=== PATIENT | male | born 1975 | race African-American/Black ===

== ENCOUNTER 2017-10-22 06:45 | Outpatient (CLI) | payer MEDICARE ==
[2017-10-21 09:24] VITALS: BMI 37.5
[~2017-10-22 06:45] MED LIST: FLU VACC QS2017-18 36 mo. & older 0.5 ML SYRINGE IM ONE; Prevnar 13-Val Conj/PF 0.5 ML SYRINGE IM ONE
[2017-10-22 07:41] VITALS: BP 115/84; TEMP 97.4
--- NOTE | 2017-10-22 09:21 | RAD ---
LUMBAR SPINE FOUR VIEWS: Technique: AP view was taken. Lateral views obtained in neutral, flexion and extension positions. History: Back pain. Comparison: 02-14-16 FINDINGS: The pedicle screws are again noted at L5-S1. Grade II spondylolisthesis of L5-S1 is again noted and d oes not appear significantly changed from the 02-14-16 exam. The alignment above L5 is maintained. Disc spaces above L5 are maintained. Prominent facet hypertroph y is noted at L3-4, L4-5, and L5-S1. The listhesis is measured at 2.7 cm in the neutral position, similar to the prior study. Flexion emma urements are recorded at 2.4 and extension recorded at 2.1. IMPRESSION: Grade II spondylolisthesis at L5-S1 with loss of disc space. Post-operative and degenerative changes noted as described. POS: [facility]
--- NOTE | 2017-10-22 09:26 | RAD ---
LUMBAR MYELOGRAM: History: Lumbar fusion. Lumbar radiculopathy. Comparison: None. Exposure: 1.1 minutes, 1165.1 mGy*cm^2. FINDINGS: Initial four view lumbar spine radiographic series is used for mold stamper and repairer imaging. There is a broken left sided S1 screw. There is perihardware lucency involving bilateral S1 and L5 screws. There is grade II anterolisthesis of L5 upon S1. Successful lumbar spine myelogram. A total of 10 cc of Isovue 200M contrast was administered intrathe himanshu. There were no immediate or post procedure complications. Technique: Consent obtained to perform a lumbar myelogram. Patient's back was evaluated. The L3-4 level was deem ed appropriate. Skin was prepped and draped in sterile fashion. 1% Lidocaine, buffered with sodium bi carbonate was used for local anesthesia. Under fluoroscopic guidance, a 22 gauge spinal needle was ad vanced through the CSF space. Via short tubing catheter, a total of 10 cc of Isovue 200M contrast was administered intrathecally. Patient tolerated the procedure well. No immediate or post procedure com plication. IMPRESSION: Successful lumbar puncture for lumbar myelogram. Please refer to post myelogram CT for further detail . POS: [facility]
--- NOTE | 2017-10-22 10:06 | CT ---
POST MYELOGRAM LUMBAR SPINE CT: History: Lumbar radiculopathy. Comparison: 06-30-14 Technique: Post myelogram lumbar spine CT is performed in the axial plane. Reformatted images are submitted for interpretation. FINDINGS: There are five lumbar type vertebral bodies. Redemonstration of a fractured left sided S1 transpedicu lar screw. There is perihardware lucency in the right S1 transpedicular screw as well as bilateral L5 transpedicular screws. There is persistent vacuum disc phenomenon. There is 1.2 cm of anterolisthesi s of L5 upon S1. No retroperitoneal mass, lymphadenopathy or hematoma. Visualized solid organs are grossly unremarkabl e. Conus medullaris terminates at the lower aspect of L2. Near the termination of the cord, there is a h ypodense mass that is extramedullary and intradural measuring 6 mm mediolateral x 1 cm anteroposterio r x 4.3 cm craniocaudal. A lipoma is favored. T11-12: No significant central canal stenosis or foraminal narrowing. T12-L1: No significant central canal stenosis or foraminal narrowing. L1-2: No significant central canal stenosis or foraminal narrowing. L2-3: No significant central canal stenosis or foraminal narrowing. L3-4: No significant central canal stenosis or neural foraminal narrowing. L4-5: No high grade central canal stenosis. Mild bilateral foraminal narrowing. L5-S1: Vacuum disc phenomenon. No high grade central canal stenosis. Moderate bilateral foraminal gabriela rowing. IMPRESSION: 1. Lumbar fusion with Grade II anterolisthesis of L5 upon S1. There is fracture of the left S1 transp edicular screw along with perihardware lucency involving bilateral L5 and the right S1 transpedicular screw. 2. No high grade central canal stenosis or high grade foraminal narrowing. 3. 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 POS: [facility]
== END 2017-10-22 06:46 | disposition home or self-care (01) ==
LOC: RAD 06:45
PROVIDERS: ATTEND Neurological Surgery
DX: M43.16 Spondylolisthesis, lumbar region (principal); M43.26 Fusion of spine, lumbar region; S32.10XA Unspecified fracture of sacrum, initial encounter for closed fracture; D17.9 Benign lipomatous neoplasm, unspecified; M43.17 Spondylolisthesis, lumbosacral region; M47.897 Other spondylosis, lumbosacral region; M51.87 Other intervertebral disc disorders, lumbosacral region; Z98.890 Other specified postprocedural states
CPT/HCPCS: 62304; 72120; 72132

== ENCOUNTER 2018-03-14 09:04 | Outpatient (CLI) | payer MEDICARE ==
--- NOTE | 2018-03-14 12:05 | MRI ---
MRI RIGHT SHOULDER WITHOUT CONTRAST: INDICATIONS: Right shoulder pain. Limited range of motion. FINDINGS: There is a full-thickness tear involving the supraspinatus, measuring 1.8 x 1.8 cm. There is moderat e tendinosis of the biceps tendon. There is abnormal linear T2 hyperintensity involving the superior glenoid labrum, extending to posterior-superior glenoid labrum, suspicious for a type II SLAP tear. The biceps tendon is located. There is mild tendinosis of the subscapularis. There is mild tendino sis of the infraspinatus. There is some intratendinous delamination seen extending into the anterior infraspinatus from the full-thickness supraspinatus tear, from the region of the conjoined tendon, b ack to the level of the musculotendinous junction of the infraspinatus. There is moderate AC joint o steoarthrosis with joint hypertrophy causing moderate encroachment on the subjacent supraspinatus mus culotendinous junction. No ling muscular atrophy is evident. The glenoid articular surface appears within normal limits. IMPRESSION: 1. Large full-thickness tear of the supraspinatus with partial thickness intratendinous delamination extending into the anterior infraspinatus back to the level of the musculotendinous junction. 2. Moderate acromioclavicular joint osteoarthrosis with mild encroachment. 3. Type II superior labrum anterior and posterior tear. POS: [facility]
== END 2018-03-14 09:05 | disposition home or self-care (01) ==
LOC: SCSMRI 09:04
PROVIDERS: ATTEND Orthopaedic Surgery
DX: M25.511 Pain in right shoulder (principal); M75.101 Unspecified rotator cuff tear or rupture of right shoulder, not specified as traumatic; S43.401A Unspecified sprain of right shoulder joint, initial encounter; M19.011 Primary osteoarthritis, right shoulder

== ENCOUNTER 2018-08-10 18:38 | Inpatient (IN) | payer MEDICARE ==
[2018-08-10 19:55] LABS: Anion Gap 16 mmol/L (10-20); BUN (Urea Nitrogen) 16 mg/dL (8.9-20.6); Calc. Creatinine Clearance 0 mL/min (70-130); Calcium 8.9 mg/dL (7.8-10.44); Carbon Dioxide 15 mmol/L (22-29); Chloride 105 mmol/L (98-107); Estimated GFR-MDRD 69; Glucose 382 mg/dL (70-105); Potassium 3.9 mmol/L (3.5-5.1); Sodium 132 mmol/L (136-145)
--- NOTE | 2018-08-10 20:25 | PDOC.FPRHP ---
- History of Present Illness Chief Complaint: DKA History of Present Illness: This is a 43 yo male with a pmh of DM2, HLD, and depression who presents to the ed from an outside facility with a cc of hyperglycemia. Pt states that he has had a URI for the past 3 weeks and reports he has been feeling poor. He presented to an outside ED and was found to be in DKA. He has received IVF bolus. He states that he has been off medications for over a year due to correction with lifestyle and diet however he reports not following this lifestyle as closely. He reports polydipsia and polyuria. ED Course: NS 2L Insulin 10 units/hr - Allergies/Adverse Reactions Allergies Allergy/AdvReac Type Severity Reaction Status Date / Time No Known Allergies Allergy Verified 10/21/17 09:12 - History PMHx: DM2, HLD PSHx: noncontributory FHx:DM, prostate cancer, HTN Social: 1/2 pack a day, socially drinks, marijuana use - Review of Systems General: reports: weight/appetite/sleep changes (25 lbs loss in 1 month), fatigue. denies: fever/chills Eyes: reports: vision changes (blurry vision, improved since lower sugars). denies: eye pain ENT: reports: nasal congestion, rhinorrhea Respiratory: denies: cough, congestion, shortness of breath Cardiovascular: denies: chest pain, palpitation, edema Gastrointestinal: reports: nausea. denies: vomiting, diarrhea, constipation Genitourinary: reports: polyuria Skin: reports: lesions (lesion on right side of head) Musculoskeletal: denies: pain, tenderness Neurological: denies: numbness, syncope Psychological: denies: anxiety, depression - Vital signs BP: 116/90 HR: 102 RR: 19 Tmax: 98.4 Pox: 99% on ra Wt: 106 kg - Physical Exam Constitutional: NAD, awake, alert and oriented, well developed HEENT: EOMI, grossly normal hearing, other (Pt has contracted, uclerated lesion on his right temporal region) Neck: trachea midline, no JVD Chest: no-tender to palpation Heart: RRR, normal S1/S2, no murmurs/rubs/gallops Lungs: CTAB, no respiratory distress, good air movement Abdomen: soft, non-tender, bowel sounds present, no masses/distention Musculoskeletal: normal structure, normal tone Neurological: CN II-XII intact Skin: good turgor Heme/Lymphatic: no unusual bruising or bleeding Psychiatric: normal mood and affect, good judgment and insight FMR H&P: Results - Labs Result Diagrams: 08/11/18 03:11 Lab results: Sodium 132 mmol/L (136-145) L 08/10/18 19:27 Potassium 3.9 mmol/L (3.5-5.1) 08/10/18 19:27 Chloride 105 mmol/L (98-107) 08/10/18 19:27 Carbon Dioxide 15 mmol/L (22-29) L 08/10/18 19:27 BUN 16 mg/dL (8.9-20.6) 08/10/18 19:27 Creatinine 1.36 mg/dL (0.7-1.3) H 08/10/18 19:27 Glucose 382 mg/dL (70-105) H 08/10/18 19:27 Calcium 8.9 mg/dL (7.8-10.44) 08/10/18 19:27 wbc 9.0 Hgb 17.8 Hct 56.8 Plt 251 MCV 82.3 - Radiology Interpretation Chest x-ray Status: report reviewed by me (no acute cardiopulmonary disease) FMR H&P: A/P - Problem List (1) DKA (diabetic ketoacidoses) Current Visit: Yes Status: Acute Code(s): E13.10 - OTH DIABETES MELLITUS WITH KETOACIDOSIS WITHOUT COMA (2) DM2 (diabetes mellitus, type 2) Current Visit: Yes Status: Acute (3) CRISTOBAL (acute kidney injury) Current Visit: Yes Status: Acute Code(s): N17.9 - ACUTE KIDNEY FAILURE, UNSPECIFIED (4) HLD (hyperlipidemia) Current Visit: Yes Status: Acute Code(s): E78.5 - HYPERLIPIDEMIA, UNSPECIFIED - Plan This is a 43 yo male with a pmh of DM2, HLD, and depression DKA -Admit to IMCU -Currently on insulin drip at 10 units/hr -Initiate DKA protocol and monitor anion gap -Current potassium is 5.1, continue to monitor electrolytes with BMP Pseudohyponatremia -Corrected Na is 137 HLD -Continue home meds Depression -Continue home meds Tobacco abuse -Nicotine patch, encourage cessation Code: Full Prophylaxis: lovenox Family: none at bedside Disposition: home in 1-2 days FMR H&P: Upper Level - Pertinent history 43M with known history of DM2, who has been off medication due to diet control, presents for fatigue for past month. It is associated with unexplained weight loss, polyuria. When he went to ER, his glucose was noted to be 521. B-hydroxy was 5.47. VBG pH was 7.234. He was started with 1 L of fluid and 20 U of insulin. He was then transferred To [facility] for further management. He had stopped taking his metformin, lantus and glipizide August of this year. He apparently had a1c of 5 this year. He specifically denies fever, chest pain, sob, abd pain, diarrhea. - Pertinent findings Gen: Alert, grossly oriented HEENT: 2 cm diameter annular lesion on right temporal head. Scally and raw in middle with hyperpigmentation at the edges. White sclera. Moist mucosal membrane. Midline trachea CV: RRR with no apparent m/g/r Resp: CTA bilaterally, unlabored breathing GI: Normoactive, soft, non tender Derm: See HEENT Ext: No obvious edema Neuro: No focal weakness observed - Plan Date/Time: 08/10/182023 I, [Kehinde Holman], have evaluated this patient and agree with findings/plan as outlined by web development intern resident. Pertinent changes/additions are listed here. 1. DKA - Base on history and lab, likely DKA. Lab does not suggest infection as trigger and patient admit to not taking diabetic medication. - Plan, DKA protocol. Will monitor and adjust as needed. 2. CRISTOBAL - This is new based on previous lab. - Possible due to dehydration from DKA - Plan for fluid hydration with DKA fluids 3. HTN - Chronic issue for which patient takes carvedilol. Will continue. 4. Annular Skin Lesion - Unclear what it may be but apparently unchanged for past several year per patient - Advise that he see his PCP for biopsy diagnosis of his right temporal annular lesion
[2018-08-10] MEDS ORDERED: Dextrose 5 %-0.45 % NaCl 1,000 ML IV PRN ×2 (23:02→23:03)
[2018-08-10] MEDS ORDERED: CCU Electrolyte Replacement 1 EACH IVPB ONE (23:02)
[2018-08-10] MEDS ORDERED: Ondansetron ODT 4 MG TAB PO PRN (23:02)
[2018-08-10] MEDS ORDERED: NS 0.9% w/ 20 MEQ KCL 1,000 ML IV PRN ×2 (23:02)
[2018-08-10] MEDS ORDERED: Acetaminophen 325 MG TAB PO PRN (23:02)
[2018-08-10] MEDS ORDERED: Sodium Chloride 0.9% 1,000 ML IV PRN ×8 (23:02→23:03)
[2018-08-10] MEDS ORDERED: D5 1/2 NS w/20 mEq KCL 1,000 ML IV PRN ×2 (23:02→23:03)
[2018-08-10] MEDS ORDERED: Dextrose 5% in Water 1,000 ML IV PRN (23:03)
[2018-08-10] MEDS ORDERED: Dextrose 50% Abboject 50 ML SYRINGE SLOW IVP PRN (23:03)
[2018-08-10] MEDS ORDERED: NS 0.9% w/ 20 MEQ KCL 1,000 ML/1,000 ML BAG IV PRN ×2 (23:03)
[2018-08-10] MEDS: NS 0.9% w/ 20 MEQ KCL 1,000 ML IV SCH ×2 (23:05→23:36)
[2018-08-10] MEDS ORDERED: Insulin Regular 300 UNITS/3 ML VIAL IVP SCH (23:15)
[2018-08-10] MEDS ORDERED: ADD ELECTROLYTE REPLACEMENT SET TO PROFILE FS SCH (23:15)
[2018-08-10] MEDS ORDERED: Magnesium Oxide 400 MG TAB PO PRN ×2 (23:24)
[2018-08-10] MEDS ORDERED: Potassium Chloride 40 MEQ in Premix Bag 1 BAG IVPB PRN (23:24)
[2018-08-10] MEDS ORDERED: Potassium Phosphate 15 MMOL in Sodium Chloride 0.9% 250 ML 250 ML IV PRN (23:24)
[2018-08-10] MEDS ORDERED: Magnesium 2 GM/NS 0.9% 100 ML 2 GM in Premix Bag 1 BAG IVPB PRN (23:24)
[2018-08-10] MEDS ORDERED: Potassium Chloride 20 MEQ TAB PO PRN (23:24)
[2018-08-10] MEDS ORDERED: Potassium Phosphate 12 MMOL in Sodium Chloride 0.9% 250 ML 250 ML IV PRN (23:24)
[2018-08-10] MEDS ORDERED: Potassium Phosphate 9 MMOL in Sodium Chloride 0.9% 100 ML IVPB PRN (23:24)
[2018-08-10] MEDS ORDERED: CCU ELECTROLYTE REPLACEMENT PROTOCOL FS PRN (23:24)
[2018-08-10] MEDS ORDERED: Potassium Chloride 40 MEQ in Sodium Chloride 0.9% 250 ML 250 ML IVPB PRN (23:24)
[2018-08-11 00:10] LABS: Anion Gap 14 mmol/L (10-20); BUN (Urea Nitrogen) 18 mg/dL (8.9-20.6); Calc. Creatinine Clearance 103 mL/min (70-130); Calcium 9.1 mg/dL (7.8-10.44); Carbon Dioxide 20 mmol/L (22-29); Chloride 106 mmol/L (98-107); Estimated GFR-MDRD 69; Glucose 285 mg/dL (70-105); Magnesium 2.4 mg/dL (1.6-2.6); Potassium 4.3 mmol/L (3.5-5.1); Sodium 136 mmol/L (136-145)
[2018-08-11 03:52] LABS: Chloride 109 mmol/L (98-107); Potassium 4.2 mmol/L (3.5-5.1)
[2018-08-11 03:53] LABS: Calcium 8.8 mg/dL (7.8-10.44); Glucose 195 mg/dL (70-105); Sodium 137 mmol/L (136-145)
[2018-08-11 03:55] LABS: Carbon Dioxide 19 mmol/L (22-29)
[2018-08-11 03:57] LABS: Calc. Creatinine Clearance 133 mL/min (70-130); Estimated GFR-MDRD Greater than 90
[2018-08-11 03:58] LABS: BUN (Urea Nitrogen) 18 mg/dL (8.9-20.6)
[2018-08-11 04:56] LABS: Anion Gap 11 mmol/L (10-20)
[2018-08-11] MEDS: NS 0.9% w/ 20 MEQ KCL 1,000 ML IV SCH (05:13)
[2018-08-11] MEDS ORDERED: Insulin Glargine 10 UNITS in Pre-Filled Syringe 1 EACH SC SCH ×2 (06:45→12:45)
[2018-08-11] MEDS ORDERED: D5 1/2 NS w/20 mEq KCL 1,000 ML IV SCH (06:45)
[2018-08-11 07:28] LABS: Anion Gap 11 mmol/L (10-20); BUN (Urea Nitrogen) 16 mg/dL (8.9-20.6); Calc. Creatinine Clearance 136 mL/min (70-130); Calcium 8.4 mg/dL (7.8-10.44); Carbon Dioxide 19 mmol/L (22-29); Chloride 111 mmol/L (98-107); Estimated GFR-MDRD Greater than 90; Glucose 197 mg/dL (70-105); Potassium 4.2 mmol/L (3.5-5.1); Sodium 137 mmol/L (136-145)
[2018-08-11] MEDS: Enoxaparin Sodium 40 MG/0.4 ML SYRINGE SC SCH (09:02)
[2018-08-11] MEDS: Fluticasone Propionate Nasal Spray 16 gm Bottle NASAL SCH (09:03)
[2018-08-11] MEDS: Sodium Chloride 0.9% 1,000 ML IV SCH ×2 (09:03→16:27)
[2018-08-11] MEDS: HumaLOG 300 UNITS/3 ML VIAL SC PRN ×2 (09:51→10:49)
--- NOTE | 2018-08-11 10:20 | PDOC.FM ---
- Subjective Subjective: Pt feeling well this AM. Reports he is hungry and that he does not have abdominal pain. no fever/chills, cough, no cp - Objective MAR Reviewed: Yes Vital Signs & Weight: Vital Signs (12 hours) Temp Pulse Resp BP BP Pulse Ox 08/11/18 07:53 97.9 F 90 16 128/93 H 99 08/11/18 04:00 97.9 F 88 12 114/76 96 08/11/18 00:00 99.0 F 100 12 124/83 100 08/10/18 22:57 99 08/10/18 22:43 99 18 126/103 H 97 Weight Weight 104.9 kg I&O: 08/10/18 08/11/18 08/12/18 06:59 06:59 06:59 Intake Total 4 Balance 4 Result Diagrams: 08/11/18 06:52 Phys Exam - Physical Examination Constitutional: NAD HEENT: moist MMs, sclera anicteric Neck: no JVD, full ROM Respiratory: no wheezing, clear to auscultation bilateral Cardiovascular: RRR, no significant murmur Gastrointestinal: soft, non-tender Musculoskeletal: no edema, pulses present Neurological: normal sensation, moves all 4 limbs Psychiatric: normal affect, A&O x 3 Skin: no rash, normal turgor Dx/Plan (1) DKA (diabetic ketoacidoses) Code(s): E13.10 - OTH DIABETES MELLITUS WITH KETOACIDOSIS WITHOUT COMA Status : Acute (2) CRISTOBAL (acute kidney injury) Code(s): N17.9 - ACUTE KIDNEY FAILURE, UNSPECIFIED Status: Acute (3) DM2 (diabetes mellitus, type 2) Status: Acute (4) HLD (hyperlipidemia) Code(s): E78.5 - HYPERLIPIDEMIA, UNSPECIFIED Status: Acute - Plan Plan: This is a 43 yo male with a pmh of DM2, HLD, and depression DKA A- Gap is closed now, CO2 at 19, sugars <200. P- will DC insulin drip and D5 drip. - will give long acting insulin, start diet, and SSI - continue to monitor electrolytes with BMP - move to floor later this AM DM A- pt has not been on home meds, diet controlled for ~ 1 year P- will restart home meds, hold home metformin HLD -Continue home meds Depression -Continue home meds Tobacco abuse -Nicotine patch, encourage cessation Code: Full Prophylaxis: lovenox Addendum - Attending - Attending Attestation Date/Time: 08/11/18 1025 I personally evaluated the patient and discussed the management with Dr. Gonzalez I agree with the History, Examination, Assessment and Plan documented above with any addition or exceptions noted below- Patient wihtout complaints. Feels much better. Wants to go home. Afebrile VSS. A/P: 1) DKA- resolved; basal dose of insulin given and overlapped with insulin drip. Stop drip and use sliding scale. Check HgbA1c.
[2018-08-11] MEDS ORDERED: Insulin Glargine 10 UNITS in Pre-Filled Syringe SC SCH (13:45)
--- NOTE | 2018-08-11 13:50 | CON ---
DATE OF CONSULTATION: 08/11/2018 SERVICE: Pulmonary Medicine. REASON FOR CONSULT: IMCU patient. HISTORY OF PRESENT ILLNESS: The patient is a 43-year-old male with past medical history significant for type 2 diabetes mellitus. Apparently, his blood sugars were under pretty good control as of a year ago. His primary care physician discontinued his insulin. All of his oral hypoglycemic agents got held as well. Ultimately, he was doing well for a very long period of time, but for the last month, he started having increasing fatigue, malaise, cough, upper respiratory tract infection. He presented to the hospital ultimately because of severe fatigue. He was found to be in DKA. He was initiated on an insulin drip, but his acidosis corrected, his appetite picked up overnight. This morning, he tolerated p.o. He denies any current fevers, chills, nausea, or vomiting. He did have a cough. He was not bringing any sputum up, but otherwise, felt like he had stuffy nose and mouth, and a little sore throat for the last week. PAST MEDICAL HISTORY: 1. Diabetes mellitus. 2. Dyslipidemia. PAST SURGICAL HISTORY: 1. Laminectomy of L5-S1. 2. Ankle surgery. SOCIAL HISTORY: He has a greater than 15-pack year history of smoking. Denies any alcohol or illicit drugs. He has no exposure to chemicals, dust, asbestos, or tuberculosis. FAMILY HISTORY: Noncontributory. ALLERGIES: NO KNOWN DRUG ALLERGIES. MEDICATIONS: List of his inpatient medications was reviewed and modified. REVIEW OF SYSTEMS: General, head, ears, eyes, nose, throat, cardiovascular, respiratory, GI, , musculoskeletal, neurologic, and skin are negative except as mentioned in the HPI. PHYSICAL EXAMINATION: VITAL SIGNS: Afebrile. Pulse 105, blood pressure 102/70, respirations 16, saturation 99% on room air. GENERAL: The patient is awake, alert, in no apparent distress. LUNGS: Excellent air entry. There is no prolonged expiratory phase, wheezing, rhonchi, or crackles present. HEART: Normal rate and regular. ABDOMEN: Soft, nontender, nondistended. Bowel sounds are positive. MUSCULOSKELETAL: No cyanosis or clubbing. There is no pitting in the bilateral lower extremities. NEUROLOGIC: Grossly nonfocal. LABORATORY DATA: WBC 9.0, hemoglobin 17.8, platelets 251,000. PH of 7.23, pCO2 of 43 on presentation. Blood sugar ranges from 263 to 350. As of this morning, his anion gap has closed and his bicarb was stable. Phosphorus was low at 2.0, magnesium felt within the normal limits. Liver function studies were unremarkable otherwise. Hemoglobin A1c 6.1. Lactate 2.5. Urinalysis is significant for glycosuria, ketonuria. Beta-hydroxybutyric acid was 5.47. ASSESSMENT: 1. Diabetic ketoacidosis. 2. Acute kidney injury, resolved. 3. Hypophosphatemia. DISCUSSION AND PLAN: The patient's gap has closed and his appetite has improved. We will continue to watch for signs of sepsis. We are converting him over to a subcu insulin. My guess is his blood sugars have been fairly well controlled until a recent likely viral illness. His hemoglobin A1c is actually not terribly elevated suggesting that we are dealing with a fairly acute phenomenon. He can be transitioned out of the ICU to the medical unit. Pulmonary will continue to follow him if he remains in this location. Job ID: [id number]
[2018-08-11 14:22] LABS: Anion Gap 13 mmol/L (10-20); BUN (Urea Nitrogen) 15 mg/dL (8.9-20.6); Calc. Creatinine Clearance 131 mL/min (70-130); Calcium 8.9 mg/dL (7.8-10.44); Carbon Dioxide 17 mmol/L (22-29); Chloride 106 mmol/L (98-107); Estimated GFR-MDRD 90; Glucose 353 mg/dL (70-105); Potassium 4.3 mmol/L (3.5-5.1); Sodium 132 mmol/L (136-145)
[2018-08-11] MEDS: Insulin Regular 300 UNITS/3 ML VIAL SC PRN ×3 (15:29→20:40)
[2018-08-11] MEDS ORDERED: Insulin Glargine 20 UNITS in Pre-Filled Syringe 1 EACH SC SCH (21:00)
[2018-08-12] MEDS: Sodium Chloride 0.9% 1,000 ML IV SCH ×2 (00:24→08:23)
[2018-08-12] MEDS: Insulin Regular 300 UNITS/3 ML VIAL SC PRN ×2 (00:27→12:29)
[2018-08-12 06:19] LABS: Anion Gap 11 mmol/L (10-20); BUN (Urea Nitrogen) 10 mg/dL (8.9-20.6); Calc. Creatinine Clearance 174 mL/min (70-130); Calcium 8.5 mg/dL (7.8-10.44); Carbon Dioxide 22 mmol/L (22-29); Chloride 109 mmol/L (98-107); Estimated GFR-MDRD Greater than 90; Glucose 125 mg/dL (70-105); Potassium 3.4 mmol/L (3.5-5.1); Sodium 139 mmol/L (136-145)
[2018-08-12] MEDS ORDERED: glipiZIDE 5 MG TAB PO SCH (07:30)
--- NOTE | 2018-08-12 07:55 | PDOC.FM ---
- Subjective Subjective: Pt feels well this morning. No abdominal pain, no concerns or complaints at this time. Pt feels he is ready to go home. no fever/chills, no abdominal pain, no nausea - Objective MAR Reviewed: Yes Vital Signs & Weight: Vital Signs (12 hours) Temp BP Pulse Ox 08/12/18 00:00 96.8 F L 100/78 96 08/11/18 20:00 98 Weight Weight 104.9 kg I&O: 08/11/18 08/12/18 08/13/18 06:59 06:59 06:59 Intake Total 2134 1883.7 Output Total 3075 Balance 2134 -1191.3 Result Diagrams: 08/12/18 05:28 Phys Exam - Physical Examination Constitutional: NAD HEENT: moist MMs, sclera anicteric Neck: no JVD, full ROM Respiratory: no wheezing, clear to auscultation bilateral Cardiovascular: RRR, no significant murmur Gastrointestinal: soft, non-tender Musculoskeletal: no edema, pulses present Neurological: normal sensation, moves all 4 limbs Psychiatric: normal affect, A&O x 3 Skin: no rash, normal turgor Dx/Plan (1) DKA (diabetic ketoacidoses) Code(s): E13.10 - OTH DIABETES MELLITUS WITH KETOACIDOSIS WITHOUT COMA Status : Acute (2) CRISTOBAL (acute kidney injury) Code(s): N17.9 - ACUTE KIDNEY FAILURE, UNSPECIFIED Status: Acute (3) DM2 (diabetes mellitus, type 2) Status: Acute (4) HLD (hyperlipidemia) Code(s): E78.5 - HYPERLIPIDEMIA, UNSPECIFIED Status: Acute - Plan Plan: This is a 43 yo male with a pmh of DM2, HLD, and depression DKA A- Gap is closed now, CO2 at 22, sugars <200 though through the afternoon they were in the 300's yesterday. This appears to be DKA exacerbated by recent URI. P- 20u lantus this AM - continue daily glipizide - accuchecks and SSI - monitor glucose today and likely DC with home glargine and glipizide DM A- restarted home meds yesterday P- continue home meds HLD -Continue home meds Depression -Continue home meds Tobacco abuse -Nicotine patch, encourage cessation Code: Full Prophylaxis: lovenox Addendum - Attending - Attending Attestation Date/Time: 08/12/18 4890 I personally evaluated the patient and discussed the management with Dr. Gonzalez I agree with the History, Examination, Assessment and Plan documented above with any addition or exceptions noted below- Patient without complaints. Afebrile VSS. BG improved; Plan to d/c home today with close follow-up with Dr. Iqbal.
[2018-08-12] MEDS: Enoxaparin Sodium 40 MG/0.4 ML SYRINGE SC SCH (08:00)
[2018-08-12] MEDS ORDERED: Potassium Chloride 20 MEQ TAB PO SCH (08:00)
[2018-08-12] MEDS: Fluticasone Propionate Nasal Spray 16 gm Bottle NASAL SCH (08:36)
[2018-08-12] MEDS ORDERED: Insulin Glargine 20 UNITS in Pre-Filled Syringe SC SCH (09:00)
[2018-08-12 11:00] LABS: Hemoglobin A1c 10.5 % (4.0-6.0)
[2018-08-12 13:46] VITALS: BP 148/78; TEMP 98.3
--- NOTE | 2018-08-12 14:33 | DIS ---
DATE OF ADMISSION: 08/10/2018 DATE OF DISCHARGE: 08/12/2018 RESIDENT: Sunday Gonzalez. DISCHARGE ATTENDING PHYSICIAN: Susie Stover MD. CONSULTS: None. PROCEDURES: None. PRIMARY DIAGNOSIS: Diabetic ketoacidosis. SECONDARY DIAGNOSES: 1. Diabetes mellitus. 2. Upper respiratory infection. 3. Hyperlipidemia. 4. Depression. 5. Acute kidney injury. DISCHARGE MEDICATIONS: 1. Glipizide 5 mg p.o. daily. 2. Levemir 30 units subcutaneous q.a.m. HISTORY OF PRESENT ILLNESS/HOSPITAL COURSE: This is a 43-year-old male with past medical history of type 2 diabetes, who presented to the ER with abdominal pain. The patient was found to have to be in diabetic ketoacidosis and was admitted for such treatment. At [place], diabetic ketoacidosis protocol was initiated and insulin drip was started. Within 12 hours, the patient's anion gap had closed. The patient was no longer acidotic and glucose was under 200 and so the patient was given one dose of long-acting insulin while the drip continued for 1 hour, then drip was discontinued and the patient was treated with long-acting insulin as well as sliding scale insulin. The patient showed continued improvement throughout the day in the next night and was restarted on home glipizide dose. Of note, the patient reported to have not been taking his medications for over a year as he had been controlled previously on diet and that his sugars had been under control. The patient was deemed stable for discharge and discharged with plans for outpatient followup with primary care physician and to resume home glipizide dosage and long-acting insulin, Levemir 30 units q.a.m. DISPOSITION: Stable. DISCHARGE INSTRUCTIONS: 1. Location: Home. 2. Diet: Diabetic diet. 3. Activity: As tolerated. 4. Follow up: With primary care physician Dr. Iqbal in 3 days. Job ID: [id number]
== END 2018-08-12 13:54 | disposition home or self-care (01) | DRG 638 ==
LOC: ERS 18:38 → IMCU/EMU 19:10 → ONC 08-11 20:00
PROVIDERS: ADMIT Family Medicine; ATTEND Family Medicine
DX: E11.10 Type 2 diabetes mellitus with ketoacidosis without coma (principal); N17.9 Acute kidney failure, unspecified; J06.9 Acute upper respiratory infection, unspecified; F32.9 Major depressive disorder, single episode, unspecified; E78.5 Hyperlipidemia, unspecified; F17.210 Nicotine dependence, cigarettes, uncomplicated; E83.39 Other disorders of phosphorus metabolism; Z79.899 Other long term (current) drug therapy; E86.0 Dehydration; I10 Essential (primary) hypertension; L98.9 Disorder of the skin and subcutaneous tissue, unspecified
CPT/HCPCS: 36415; 36416; 80048; 83036; 83735; 84100; J1650; J1815; J7050

== ENCOUNTER 2021-01-07 10:41 | Inpatient (IN) | payer MEDICARE ==
[2021-01-07 11:37] LABS: Bilirubin Negative (Negative); Blood, Urine 1+ (Negative); Clarity Clear (Clear); Glucose, Urine (Dipstick) Greater than 1000 mg/dL (Negative); Ketone, Urine 100 mg/dL (Negative); Leukocyte Negative Leu/uL (Negative); Nitrite Negative (Negative); Protein, Urine (Dipstick) 20 mg/dL (Neg-Trace); RBC/HPF 0-3 HPF (0-3); Specific Gravity, Urine 1.023 (1.002-1.036); Squamous Epithelial 0-3 HPF (0-3); Urobilinogen Normal mg/dL (Less than 2); WBC/HPF 0-3 HPF (0-3)
[2021-01-07 11:38] LABS: Bacteria/HPF Rare-Few HPF (None Seen)
[2021-01-07] MEDS ORDERED: Ondansetron PF 4 MG/2 ML Vial ONE (11:38)
[2021-01-07 11:58] LABS: Analyzer IN Cardio ER; Calcium, Ionized (venous) 1.07 mmol/L (1.16-1.32); Chloride (VBG) 87 mmol/L (98-106); Hemoglobin (Hb) 19.4 g/dL (13.1-17.2); Potassium (VBG) 4.99 mmol/L (3.70-5.30); Sodium 128.6 mmol/L (133-146)
[2021-01-07 11:59] LABS: Actual Bicarbonate (HCO3v) 9 mEq/L (22-28); pH (venous) 7.14 (7.32-7.43)
[2021-01-07 12:18] LABS: SARS-CoV-2 NAA Rapid Test Not Detected (NotDetected)
[2021-01-07] MEDS ORDERED: Morphine 2 MG/ML VIAL SLOW IVP PRN (12:48)
[2021-01-07 12:59] LABS: Glucose 802 mg/dL (70-105)
[2021-01-07 13:00] LABS: BUN (Urea Nitrogen) 56 mg/dL (8.9-20.6); Calc. Creatinine Clearance 0 mL/min (70-130); Calcium 8.8 mg/dL (7.8-10.44); Carbon Dioxide Less than 8 mmol/L (22-29); Chloride 87 mmol/L (98-107); Potassium 5.3 mmol/L (3.5-5.1); Sodium 127 mmol/L (136-145)
[2021-01-07 13:02] VITALS: BMI 19.3
[2021-01-07 13:02] LABS: Glucose 802 mg/dL (70-105)
[2021-01-07] MEDS ORDERED: Dextrose 50% Abboject 50 ML SYRINGE SLOW IVP PRN (13:02)
[2021-01-07] MEDS ORDERED: Ondansetron PF 4 MG/2 ML Vial IVP PRN (13:04)
[2021-01-07] MEDS ORDERED: Ondansetron ODT 4 MG TAB PO PRN (13:05)
[2021-01-07] MEDS ORDERED: Dextrose 5% in Water 1,000 ML IV PRN (13:15)
[2021-01-07] MEDS ORDERED: Sodium Chloride 0.9% 1,000 ML IV PRN ×3 (13:15)
[2021-01-07] MEDS ORDERED: ADD ELECTROLYTE REPLACEMENT SET TO PROFILE FS SCH (13:15)
[2021-01-07] MEDS ORDERED: Dextrose 5 %-0.45 % NaCl 1,000 ML IV PRN (13:15)
[2021-01-07] MEDS ORDERED: NS 0.9% w/ 20 MEQ KCL 1,000 ML/1,000 ML BAG IV PRN ×2 (13:15)
[2021-01-07] MEDS: Sodium Chloride 0.9% 1,000 ML IV SCH ×2 (14:58→19:29)
[2021-01-07] MEDS: HUMULIN R 100 UNITS in Sodium Chloride 0.9% 100 ML IVPB SCH (15:03)
[2021-01-07] MEDS: Sodium Chloride 0.9% 1,000 ML IV PRN ×2 (15:05→22:30)
[2021-01-07 15:34] LABS: Lactic Acid 3.7 mmol/L (0.5-2.2)
[2021-01-07 15:44] LABS: Troponin I 0.027 ng/mL (< 0.028)
[2021-01-07 15:48] LABS: Anion Gap 30 mmol/L (10-20); BUN (Urea Nitrogen) 52 mg/dL (8.9-20.6); Calc. Creatinine Clearance 33 mL/min (70-130); Calcium 8.9 mg/dL (7.8-10.44); Chloride 94 mmol/L (98-107); Potassium 5.4 mmol/L (3.5-5.1); Sodium 128 mmol/L (136-145)
[2021-01-07 15:51] LABS: Carbon Dioxide 9 mmol/L (22-29); Glucose 638 mg/dL (70-105)
[2021-01-07 18:53] LABS: Troponin I 0.032 ng/mL (< 0.028)
[2021-01-07] MEDS ORDERED: Metoprolol Tartrate 5 MG/5 ML VIAL IVP PRN (19:19)
[2021-01-07 20:51] LABS: Anion Gap 19 mmol/L (10-20); BUN (Urea Nitrogen) 45 mg/dL (8.9-20.6); Calc. Creatinine Clearance 44 mL/min (70-130); Calcium 8.6 mg/dL (7.8-10.44); Carbon Dioxide 16 mmol/L (22-29); Chloride 102 mmol/L (98-107); Glucose 358 mg/dL (70-105); Sodium 132 mmol/L (136-145)
[2021-01-08 04:08] LABS: Anion Gap 13 mmol/L (10-20); BUN (Urea Nitrogen) 30 mg/dL (8.9-20.6); Calc. Creatinine Clearance 72 mL/min (70-130); Calcium 8.3 mg/dL (7.8-10.44); Carbon Dioxide 19 mmol/L (22-29); Chloride 106 mmol/L (98-107); Glucose 209 mg/dL (70-105); Potassium 3.9 mmol/L (3.5-5.1); Sodium 134 mmol/L (136-145)
[2021-01-08 04:15] LABS: #Lymphocytes 1.5 thou/uL (1.20-3.40); #Monocytes 1.4 thou/uL (0.11-0.59); #Neutrophils 14.4 thou/uL (1.40-6.50); %Basophils 0.1 % (0.0-1.0); %Eosinophils 0.1 % (0.0-10.0); %Lymphocytes 8.9 % (21.0-51.0); %Monocytes 8.2 % (0.0-10.0); %Neutrophils 82.7 % (42.0-75.0); Hemoglobin 14.2 g/dL (14.0-18.0); Mean Corpuscular HGB CONC 32.8 g/dL (32.0-36.0); Mean Corpuscular Hemoglobin 25.8 pg (27.0-31.0); Mean Corpuscular Volume 78.5 fL (78.0-98.0); Mean Platelet Volume 8.6 fL (7.4-10.4); Platelet Count 252 thou/uL (130-400); Red Blood Cell (RBC) Count 5.49 mill/uL (4.70-6.10); White Blood Cell (WBC) Count 17.4 thou/uL (4.8-10.8)
[2021-01-08] MEDS: D5 1/2 NS w/20 mEq KCL 1,000 ML IV PRN ×2 (04:35→09:11)
[2021-01-08] MEDS: HUMULIN R 100 UNITS in Sodium Chloride 0.9% 100 ML IVPB SCH (09:10)
[2021-01-08] MEDS: Sodium Chloride 0.9% 1,000 ML IV SCH ×2 (09:10→14:04)
[2021-01-08 10:48] LABS: Anion Gap 12 mmol/L (10-20); BUN (Urea Nitrogen) 21 mg/dL (8.9-20.6); Calc. Creatinine Clearance 79 mL/min (70-130); Calcium 8.6 mg/dL (7.8-10.44); Carbon Dioxide 22 mmol/L (22-29); Chloride 104 mmol/L (98-107); Glucose 213 mg/dL (70-105); Potassium 3.5 mmol/L (3.5-5.1); Sodium 134 mmol/L (136-145)
[2021-01-08] MEDS ORDERED: Lantus 1000 UNITS/10 ML VIAL SC SCH (13:30)
[2021-01-08] MEDS: Calcium Carbonate 500 MG ChewTAB PO PRN (15:18)
[2021-01-08] MEDS: Pantoprazole 40 MG VIAL IVP SCH (16:50)
[2021-01-08] MEDS ORDERED: Dextrose 5% in Water 1,000 ML IV PRN (17:45)
[2021-01-08] MEDS ORDERED: Dextrose 50% Abboject 50 ML SYRINGE SLOW IVP PRN (17:45)
[2021-01-08] MEDS: HumaLOG 300 UNITS/3 ML VIAL SC PRN ×2 (18:46→20:53)
[2021-01-08] MEDS: Lantus 1000 UNITS/10 ML VIAL SC SCH (20:53)
[2021-01-09 03:58] LABS: #Lymphocytes 2.6 thou/uL (1.20-3.40); #Monocytes 1.2 thou/uL (0.11-0.59); #Neutrophils 8.7 thou/uL (1.40-6.50); %Basophils 0.4 % (0.0-1.0); %Eosinophils 0.1 % (0.0-10.0); %Lymphocytes 20.8 % (21.0-51.0); %Monocytes 9.7 % (0.0-10.0); Hemoglobin 13.7 g/dL (14.0-18.0); Mean Corpuscular HGB CONC 33.1 g/dL (32.0-36.0); Mean Corpuscular Hemoglobin 26.3 pg (27.0-31.0); Mean Corpuscular Volume 79.3 fL (78.0-98.0); Mean Platelet Volume 8.5 fL (7.4-10.4); Platelet Count 216 thou/uL (130-400); RBC Distribution Width 13.1 % (11.5-14.5); Red Blood Cell (RBC) Count 5.22 mill/uL (4.70-6.10); White Blood Cell (WBC) Count 12.6 thou/uL (4.8-10.8)
[2021-01-09] MEDS: Pantoprazole 40 MG VIAL IVP SCH (04:19)
[2021-01-09] MEDS: Sodium Chloride 0.9% 1,000 ML IV SCH (04:20)
[2021-01-09] MEDS: Calcium Carbonate 500 MG ChewTAB PO PRN (04:24)
[2021-01-09 08:09] VITALS: TEMP 98.8
[2021-01-09] MEDS: Lantus 1000 UNITS/10 ML VIAL SC SCH (10:39)
== END 2021-01-09 14:02 | disposition home or self-care (01) | DRG 638 ==
LOC: ERS 10:41 → IMCU/EMU 11:45
PROVIDERS: ADMIT Internal Medicine; ATTEND Internal Medicine
DX: E11.10 Type 2 diabetes mellitus with ketoacidosis without coma (principal); N17.9 Acute kidney failure, unspecified; R65.10 Systemic inflammatory response syndrome (SIRS) of non-infectious origin without acute organ dysfunction; Z20.822 Contact with and (suspected) exposure to COVID-19; E86.0 Dehydration; E78.5 Hyperlipidemia, unspecified; E78.00 Pure hypercholesterolemia, unspecified; F32.9 Major depressive disorder, single episode, unspecified; F17.210 Nicotine dependence, cigarettes, uncomplicated; D72.829 Elevated white blood cell count, unspecified; R13.10 Dysphagia, unspecified; K21.9 Gastro-esophageal reflux disease without esophagitis; N28.1 Cyst of kidney, acquired; F12.10 Cannabis abuse, uncomplicated; Z79.4 Long term (current) use of insulin
CPT/HCPCS: 0240U; 36415; 36416; 74176; 80048; 82805; 83605; 84484; 85025; 87086; 93005; 96365; C9113; J1815; J2405; J3480; J3490